=== PATIENT | male | born 1995 ===

== ENCOUNTER 2018-03-12 07:02 | Emergency (ER) | payer SELFPAY ==
[2018-03-12 07:12] VITALS: BP 141/79
--- NOTE | 2018-03-12 07:39 | UC ---
Skin Complaint HPI - HPI Summary HPI Summary: Patient presents with target lesion on his left posterior shoulder discovered by his girlfriend yesterday. Patient has had 4 days of fever, TMAX 101.4, chills and sharp posterior headache. He denies muscle or joint pain. Does not recall having any tick bites but did go camping about 3 weeks ago. Took Tylenol this morning. - History of Current Complaint Chief Complaint: UCGeneralIllness Time Seen by Provider: 03/12/18 07:14 Stated Complaint: TICK BITE Hx Obtained From: Patient Onset/Duration: Gradual Onset, Lasting Days, Still Present Timing: Constant Onset Severity: Moderate Current Severity: Moderate Pain Intensity: 0 Pain Scale Used: 0-10 Numeric Location: Discrete - LEFT POSTERIOR SHOULDER Character: Redness Aggravating Factor(s): Nothing Alleviating Factor(s): Nothing Associated Signs & Symptoms: Positive: Fever, Chills, Rash - Allergy/Home Medications Allergies/Adverse Reactions: Allergies Allergy/AdvReac Type Severity Reaction Status Date / Time lactose Allergy Headache Verified 03/12/18 07:19 Home Medications: Home Medications Acetaminophen [Tylenol] 1 tab PO BID 03/12/18 [History Confirmed 03/12/18] Dm/PE/Acetaminophen/Doxylamine [Vicks Nyquil Severe Cold-Flu] 1 dose PO BID PRN 03/12/18 [History Confirmed 03/12/18] Review of Systems Constitutional: Fever, Chills, Fatigue Skin: Rash ENT: Negative Respiratory: Negative Cardiovascular: Negative Gastrointestinal: Negative Musculoskeletal: Negative Neurological: Headache All Other Systems Reviewed And Are Negative: Yes PMH/Surg Hx/FS Hx/Imm Hx Previously Healthy: Yes - Surgical History Surgical History: None Surgery Procedure, Year, and Place: 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 - Family History Known Family History: Positive: Cardiac Disease, Hypertension - Social History Alcohol Use: Daily Substance Use Type: Marijuana Smoking Status (MU): Light Every Day Tobacco Smoker - Immunization History Most Recent Tetanus Shot: UTD Physical Exam Triage Information Reviewed: Yes Appearance: Well-Appearing, No Pain Distress, Well-Nourished Vital Signs: Initial Vital Signs Temp 100.2 F 03/12/18 07:07 Pulse 102 03/12/18 07:07 Resp 18 03/12/18 07:07 BP 141/79 03/12/18 07:07 Pulse Ox 97 03/12/18 07:07 Vital Signs Reviewed: Yes Eyes: Positive: Conjunctiva Clear ENT: Positive: Hearing grossly normal Neck: Positive: Supple Respiratory: Positive: No respiratory distress, No accessory muscle use Cardiovascular: Positive: Pulses Normal Abdomen Description: Positive: Soft Musculoskeletal: Positive: No Edema Neurological: Positive: Alert Psychological: Positive: Age Appropriate Behavior Skin: Positive: rashes - 6CM X 7CM TARGET LESION LEFT POSTERIOR SHOULDER. NOT TENDER. NOT DRAINING Course/Dx - Course Course Of Treatment: PT WITH TYPICAL EM RASH LEFT SHOULDER WITH FEVER, BRAUN AND OVERALL MALAISE. WENT CAMPING 3 WEEKS AGO. WILL TREAT FOR LYME. F/U DR. VILLANUEVA. - Diagnoses Provider Diagnoses: LYME DISEASE Discharge - Sign-Out/Discharge Documenting (check all that apply): Discharge/Admit/Transfer - Discharge Plan Condition: Stable Disposition: HOME Prescriptions: Doxycycline Monohydrate [Doxycycline Monohydrate] 1 cap PO BID #42 cap Patient Education Materials: Lyme Disease (ED) Forms: *Work Release Referrals: Juno LOVE,Kristopher Glaser [Medical Doctor] - Additional Instructions: LYME DISEASE: You are suspected of having Lyme disease. Further testing may be necessary to confirm the diagnosis. Lyme disease is an infection spread through the bite of a deer tick. Symptoms include rash, fever, fatigue, joint swelling, and aches. Lyme disease can be treated with antibiotics. It is important that you take the entire course of medication. Call the physician if you develop severe headache, stiff neck, paralysis or "drooping" of either side of the face, or a worsening of any other symptom. The majority of patients with early Lyme disease who receive appropriate antibiotic therapy have complete resolution of the signs and symptoms of infection within 20 days and, in one trial, erythema migrans (the rash) and its associated symptoms resolved in a mean of five to six days. Patients who are more systemically ill at the beginning of treatment may take longer to recover. Some patients have mild subjective symptoms, such as headache, musculoskeletal pain, arthralgia, or fatigue, that persist for weeks to months after treatment. These subjective findings often resolve spontaneously, usually within six months , without further antibiotic therapy; they are not due to ongoing active Lyme disease. Almost all patients who have a satisfactory response to antibiotic therapy do well over the [facility]. CALL THE NUMBER BELOW FOR ASSISTANCE IN ESTABLISHING WITH A PCP An additional resource available to assist in finding the appropriate physician for your health care needs is the [facility] ([facility]). You may contact them by calling [phone]. - Billing Disposition and Condition Condition: STABLE Disposition: Home
[2018-03-12] MEDS ORDERED: Ibuprofen TAB* 400 MG PO ONE (07:52)
== END 2018-03-12 07:45 | disposition home or self-care (01) ==
LOC: UCEAST 07:02
DX: A69.20 Lyme disease, unspecified (principal); Z82.49 Family history of ischemic heart disease and other diseases of the circulatory system; F17.200 Nicotine dependence, unspecified, uncomplicated
CPT/HCPCS: 99202; A9270-GY; G0463